=== PATIENT | male | born 1995 | race African-American/Black ===

== ENCOUNTER 2019-05-11 23:20 | Emergency (ER) | payer SELFPAY ==
[~2019-05-11] VITALS: Ht 167.6 cm; Wt 68.0 kg
--- NOTE | 2019-05-11 23:32 | Emergency Room Report ---
History of Present Illness General Chief Complaint: Medical Clearance Source: Patient Present Illness HPI The patient punched a glass window 1 1/2 week ago. He has been dealing with the wound on his own. He has been using topical antibiotics. Is elected not to get stitches. He says the wounds are improving. He denies fevers or chills. There is no numbness. He denies pain at this time. He is been arrested in here to be evaluated for the wound. Last tetanus 1 month ago. Allergies: Coded Allergies: No Known Allergies (Unverified , 05/11/19) Patient History Past Medical History: see triage record Social History: Reports: smoking Social History Narrative violated parole Reviewed Nursing Documentation: PMH: Agreed; PSxH: Agreed Nursing Documentation-PMH Past Medical History: No History, Except For Hx Asthma: Yes Hx Cancer: No - HIV Review of Systems Constitutional: Reports: see HPI Respiratory: Denies: shortness of breath Cardiovascular: Denies: chest pain Gastrointestinal: Denies: abdominal pain, diarrhea, nausea, vomiting Genitourinary: Denies: dysuria Musculoskeletal: Reports: see HPI Skin: Reports: see HPI Neurological: Reports: see HPI; Denies: numbness Physical Exam Vital Signs Date Time Temp Pulse Resp B/P (MAP) Pulse Ox O2 Delivery O2 Flow Rate FiO2 05/11/19 23:23 98.4 98 18 135/87 (103) 98 Room Air Sp02 EP Interpretation: reviewed, normal General Appearance: well appearing, no apparent distress, GCS 15 Head: normocephalic, atraumatic Eyes: bilateral eye normal inspection, bilateral eye PERRL ENT: hearing grossly normal, normal voice, moist mucus membranes Neck: full range of motion, supple Respiratory: no respiratory distress, speaking full sentences Cardiovascular #1: regular rate, rhythm Cardiovascular #2: 2+ radial (R) - Good capillary refill all digits Gastrointestinal: normal inspection, scaphoid Musculoskeletal: gait/station normal, normal range of motion, swelling - Skin and fifth meta carpal phalangeal joint area. Swelling of thumb Neurologic: alert, motor strength/tone normal, sensory intact Psychiatric: mood/affect normal Skin: laceration - old R thumb and dorsum of hand, no drainage or erythema Medical Decision Making Diagnostic Impression: Primary Impression: hand lacerations ER Course The patient presents with hand lacerations that occurred a week and a half ago. Differential includes open wounds, ulcers, cellulitis amongst others. Because of the potential for infection antibiotics are indicated. The patient is up-to-date on his tetanus. Although her there is swelling due to the normal range of motion imaging studies are not indicated at this time. Patient is stable for booking and outpatient treatment and observation. Last Vital Signs Date Time Temp Pulse Resp B/P (MAP) Pulse Ox O2 Delivery O2 Flow Rate FiO2 05/12/19 00:20 98.4 18 135/87 98 Room Air 05/11/19 23:41 98 Status: improved Disposition: D/C TO LAW ENFORCEMENT IN [facility] Condition: Improved Scripts Bacitracin (Bacitracin) 28.4 Gm Oint...g. 1 APPLIC TOPIC BID, #20 GM Prov: Jaxson Last MD 05/11/19 Trimethoprim/Sulfamethoxazole 160/800* (BACTRIM DS TABLET*) 1 Each Tablet 1 TAB ORAL Q12H, #14 TAB 0 Refills Prov: Jaxson Last MD 05/11/19 Jaxson Last MD May 11, 2019 23:32
[2019-05-11 23:41] VITALS: BP 135/87
--- NOTE | 2019-05-11 23:45 | NUR ---
ED Nurse Note: Patient walked in to ER accompany with [employer] for medical clearance.
--- NOTE | 2019-05-11 23:46 | NUR ---
ED Nurse Note: AAO x4, VSS at this time, skin is dry, warm to touch. Patient presented with laceration on his right wrist, states that hit his right arm to glass window.
[2019-05-11] MEDS ORDERED: BACTRIM DS TAB1 EAC1 ORAL (23:55)
[2019-05-11] MEDS ORDERED: BACITRACIN15 GM TOPIC (23:55)
[2019-05-12] MEDS ORDERED: Bacitracin Oint UD TOPIC ONE
[2019-05-12] MEDS ORDERED: Bactrim-DS 1 tab ORAL ONE
[2019-05-12 00:20] VITALS: BP 135/87
--- NOTE | 2019-05-12 00:20 | NUR ---
ED Nurse Note: Pt cleared by health care Provider for discharge. DC instructions/prescription was given and explained to [employer] officer and verbalized understanding of teachings. All medical deviecs such as ID band removed. Pt is AAO x4, ambulatory and left with all personal belongings.
== END 2019-05-12 00:20 ==
LOC: EMR 23:58
DX: S61.011A Laceration without foreign body of right thumb without damage to nail, initial encounter (principal); S61.411A Laceration without foreign body of right hand, initial encounter; W25.XXXA Contact with sharp glass, initial encounter; Y92.9 Unspecified place or not applicable; F17.200 Nicotine dependence, unspecified, uncomplicated; B20 Human immunodeficiency virus [HIV] disease
CPT/HCPCS: 99282